=== PATIENT | female | born 2000 | race Caucasian/White ===

== ENCOUNTER 2021-12-31 03:26 | Observation (INO) | payer MEDICAID ==
[~2021-12-31] VITALS: Ht 152.4 cm; Wt 68.0 kg
== END 2021-12-31 04:52 | disposition home or self-care (01) ==
LOC: SPU 03:26
PROVIDERS: ADMIT Specialist; ATTEND Specialist
DX: O26.893 Other specified pregnancy related conditions, third trimester (principal); R10.10 Upper abdominal pain, unspecified; Z3A.37 37 weeks gestation of pregnancy
CPT/HCPCS: 81002; G0378

== ENCOUNTER 2022-01-02 23:55 | Inpatient (IN) | payer MEDICAID ==
[~2022-01-02] VITALS: Ht 152.4 cm; Wt 68.0 kg
[2022-01-03] MEDS ORDERED: LR 1,000 ML IV ONE (00:45)
[2022-01-03] MEDS ORDERED: OXYTOCIN/0.9 % SODIUM CHLORIDE 1,000 ML IV SCH ×2 (00:45→21:30)
[2022-01-03] MEDS ORDERED: NALBUPHINE HCL 10 MG/ML AMP IM PRN (00:45)
[2022-01-03] MEDS ORDERED: LR 1,000 ML IV SCH (00:45)
[2022-01-03] MEDS ORDERED: TERBUTALINE SULFATE 1 MG/ML VIAL SUBCUT ONE (00:45)
[2022-01-03 02:44] LABS: BASOPHILS % (AUTO) 0.4 % (0.0-2.0); EOSINOPHILS # (AUTO) 0.1 K/uL (0.0-0.4); EOSINOPHILS % (AUTO) 1.4 % (0.0-4.0); HEMATOCRIT 34.6 % (36-48); HEMOGLOBIN 11.8 g/dL (12.0-16.0); LYMPHOCYTES # (AUTO) 2.3 K/uL (1.0-5.5); LYMPHOCYTES % (AUTO) 21.9 % (20.5-51.5); MEAN CORPUSCULAR HEMOGLOBIN 29 pg (27-31); MEAN CORPUSCULAR HGB CONC 34 % (32-36); MEAN CORPUSCULAR VOLUME 85 fL (79.0-98.0); MONOCYTES # (AUTO) 0.3 K/uL (0.0-1.0); MONOCYTES % (AUTO) 3.3 % (1.7-9.3); NEUTROPHILS # (AUTO) 7.6 K/uL (1.8-7.7); PLATELET COUNT (AUTO) 215 K/uL (130-430); RED BLOOD CELL COUNT(AUTO) 4.08 MIL/uL (4.2-6.2); RED CELL DISTRIBUTION WIDTH 14.3 % (9.0-15.0); WHITE BLOOD COUNT (AUTO) 10.4 K/uL (4.8-10.8)
[2022-01-03 05:42] VITALS: BP_SYST 119
[2022-01-03] MEDS: NALBUPHINE HCL 10 MG/ML AMP IVP PRN ×2 (08:34→15:31)
[2022-01-03] MEDS ORDERED: NALOXONE HCL 0.4 MG/ML AMP (NARCAN) IVP PRN (15:30)
[2022-01-03] MEDS ORDERED: ONDANSETRON HCL 4 MG/2 ML VIAL IVP PRN (15:30)
[2022-01-03] MEDS ORDERED: FENT2mCg/mL-ROPIVA0.2%/NS EPID 200 ML EP SCH (15:30)
[2022-01-03] MEDS ORDERED: DIPHENHYDRAMINE INJ 50 MG/ML VIAL IVP PRN (15:30)
[2022-01-03] MEDS ORDERED: fentaNYL CITRATE/PF 100 MCG/2 ML AMP ONE (15:39)
[2022-01-03] MEDS ORDERED: ROPIVACAINE HCL/PF 0.2% 200 ML ONE (15:39)
[2022-01-03] MEDS ORDERED: LIGHT MINERAL OIL 10 ML VIAL MC ONE (19:41)
[2022-01-03] MEDS ORDERED: NALOXONE HCL 0.4 MG/ML AMP (NARCAN) ONE (19:41)
[2022-01-03] MEDS ORDERED: LIDOCAINE PF 1% 30ML(POUR BTL) INJ ONE (19:41)
[2022-01-03] MEDS ORDERED: DERMOPLAST SPRAY TP PRN (21:30)
[2022-01-03] MEDS ORDERED: DIPH-TET-PERTUS Vaccine 0.5 ML VIAL (ADACEL) I.M. PRN (21:30)
[2022-01-03] MEDS ORDERED: LANOLIN 7 GM OINT. TP PRN (21:30)
[2022-01-03] MEDS ORDERED: WITCH HAZEL LEAF 1 MED.PAD MED.PAD TP PRN (21:30)
[2022-01-03] MEDS ORDERED: MEASLES,MUMPS&RUBELLA VACC/PF 12500 UNIT/0.5 ML VIAL SUBQ PRN (21:30)
[2022-01-03] MEDS ORDERED: RHO(D) IMMUNE GLOBULIN/MALTOSE 1500 UNITS/1.3 ML (WINHRO) IM PRN (21:30)
[2022-01-03] MEDS ORDERED: HYDROCORTISONE 0.5% CREAM 28.4 GM CREAM.GM. TP PRN (21:30)
[2022-01-03] MEDS ORDERED: TEMAZEPAM 15 MG CAPSULE PO PRN (21:30)
[2022-01-03] MEDS ORDERED: OXYTOCIN/0.9 % SODIUM CHLORIDE 1,000 ML IV ONE (21:30)
[2022-01-03] MEDS ORDERED: ANUSOL 1 EA SUPP.RECT (PREPARATION H) RC PRN (21:30)
[2022-01-03] MEDS: IBUPROFEN 600 MG TABLET PO SCH (23:44)
[2022-01-04 05:58] LABS: HEMATOCRIT 30.9 % (36-48); HEMOGLOBIN 10.4 g/dL (12.0-16.0)
[2022-01-04] MEDS: IBUPROFEN 600 MG TABLET PO SCH ×3 (06:08→18:28)
[2022-01-04] MEDS ORDERED: DOCUSATE SODIUM 100 MG CAPSULE PO SCH (09:00)
[2022-01-04] MEDS ORDERED: SENNOSIDES/DOCUSATE SODIUM 1 TAB TABLET(SENOKOT-S) PO SCH (21:00)
[2022-01-05] MEDS: IBUPROFEN 600 MG TABLET PO SCH ×3 (00:22→13:36)
== END 2022-01-05 14:52 | disposition home or self-care (01) | DRG 560 ==
LOC: SPU 23:55
PROVIDERS: ADMIT Obstetrics & Gynecology; ATTEND Obstetrics & Gynecology
PROC: 10D07Z6 Extraction of Products of Conception, Vacuum, Via Natural or Artificial Opening (ICD-10-PCS; principal; 2022-01-03)
PROC: 0KQM0ZZ Repair Perineum Muscle, Open Approach (ICD-10-PCS; 2022-01-03)
PROC: 3E0R3BZ Introduction of Anesthetic Agent into Spinal Canal, Percutaneous Approach (ICD-10-PCS; 2022-01-03)
PROC: 00HU33Z Insertion of Infusion Device into Spinal Canal, Percutaneous Approach (ICD-10-PCS; 2022-01-03)
DX: O42.92 Full-term premature rupture of membranes, unspecified as to length of time between rupture and onset of labor (principal); Z37.0 Single live birth; O70.1 Second degree perineal laceration during delivery; O76 Abnormality in fetal heart rate and rhythm complicating labor and delivery; Z20.822 Contact with and (suspected) exposure to COVID-19; Z3A.37 37 weeks gestation of pregnancy
CPT/HCPCS: 36415; 81002; 85018; 85025; 86592; 86886; 86900; 86901; 94760; J2001; J2300; J2310; J2590; J3010